=== PATIENT | female | born 1995 | race American Indian/Alaskan Native ===

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

== ENCOUNTER 2017-08-09 08:55 | Emergency (ER) | payer MEDICAID ==
--- NOTE | 2017-08-09 10:08 | Emergency Department Report ---
ED Female HPI - General Chief complaint: Urogenital-Female Stated complaint: ABDOMINAL PAIN Time Seen by Provider: 08/09/17 09:44 Source: patient Mode of arrival: Ambulatory Limitations: No Limitations - History of Present Illness Initial comments: 22-year-old female past medical history asthma presents with complaint of intermittent crampy pain for 2 weeks suprapubic with associated yellowish whitish vaginal discharge. Patient denies fevers chills nausea or vomiting. States pain is crampy. States she has a history of Chlamydia gonorrhea and trichomonas. Full lucid awake alert and oriented 3. MD Complaint: vaginal discharge Onset/Timin -: week(s) - Related Data Previous Rx's Medication Instructions Recorded Last Taken Type Ibuprofen [Motrin] 600 mg PO Q8H PRN #15 tablet 08/04/16 Unknown Rx methOCARBAMOL [Robaxin TAB] 500 mg PO Q6H PRN #15 tablet 08/04/16 Unknown Rx Fluconazole [Diflucan] 150 mg PO ONCE #1 tablet 08/09/17 Unknown Rx Sulfamethoxazole/Trimethoprim 1 each PO BID #6 tablet 08/09/17 Unknown Rx [Bactrim DS TAB] Allergies Allergy/AdvReac Type Severity Reaction Status Date / Time egg Allergy Swelling Verified 08/09/17 09:09 ED Review of Systems ROS: Stated complaint: ABDOMINAL PAIN Other details as noted in HPI ED Past Medical Hx - Past Medical History Hx Asthma: Yes - Surgical History Past Surgical History?: No - Social History Smoking Status: Never Smoker Substance Use Type: None - Medications Home Medications: Home Medications Medication Instructions Recorded Confirmed Last Taken Type Ibuprofen [Motrin] 600 mg PO Q8H PRN #15 tablet 08/04/16 Unknown Rx methOCARBAMOL [Robaxin TAB] 500 mg PO Q6H PRN #15 tablet 08/04/16 Unknown Rx Fluconazole [Diflucan] 150 mg PO ONCE #1 tablet 08/09/17 Unknown Rx Sulfamethoxazole/Trimethoprim 1 each PO BID #6 tablet 08/09/17 Unknown Rx [Bactrim DS TAB] ED Physical Exam - General Limitations: No Limitations General appearance: alert, in no apparent distress - Head Head exam: Present: atraumatic, normocephalic - Eye Eye exam: Present: normal appearance - ENT ENT exam: Present: mucous membranes moist - Neck Neck exam: Present: normal inspection - Respiratory Respiratory exam: Present: normal lung sounds bilaterally. Absent: respiratory distress - Cardiovascular Cardiovascular Exam: Present: regular rate, normal rhythm. Absent: systolic murmur, diastolic murmur, rubs, gallop - GI/Abdominal GI/Abdominal exam: Present: soft, normal bowel sounds - Extremities Exam Extremities exam: Present: normal inspection - Back Exam Back exam: Present: normal inspection - Neurological Exam Neurological exam: Present: alert, oriented X3 - Psychiatric Psychiatric exam: Present: normal affect, normal mood - Skin Skin exam: Present: warm, dry, intact, normal color. Absent: rash ED Course Vital Signs 08/09/17 09:09 Temperature 98.3 F Pulse Rate 55 L Respiratory 16 Rate Blood Pressure 103/62 O2 Sat by Pulse 100 Oximetry ED Medical Decision Making - Medical Decision Making A/P: yeast infection, vaginal irritation 1-3 day course of Bactrim for UTI 2- fluconazole 1 dose for yeast, what prep unremarkable otherwise 3- Treatment for cervicitis 4- follow-up with [facility] and primary care Critical care attestation.: If time is entered above; I have spent that time in minutes in the direct care of this critically ill patient, excluding procedure time. ED Disposition Clinical Impression: Vaginal discharge, Yeast infection Urinary tract infection Qualifiers: Urinary tract infection type: acute cystitis Hematuria presence: without hematuria Qualified Code(s): N30.00 - Acute cystitis without hematuria Disposition: - TO HOME OR SELFCARE Is pt being admited?: No Does the pt Need Aspirin: No Condition: Stable Instructions: Urinary Tract Infection in Women (ED), Vulvovaginal Candidiasis ( ED) Prescriptions: Fluconazole [Diflucan] 150 mg PO ONCE #1 tablet Sulfamethoxazole/Trimethoprim [Bactrim DS TAB] 1 each PO BID #6 tablet Referrals: [facility] [Provider Group] - 3-5 Days [facility] [Provider Group] - 3-5 Days Forms: Work/School Release Form(ED) Time of Disposition: 10:53
[2017-08-09 10:25] LABS: Bacteria,Urine 1+ /HPF (Negative); Bilirubin,Urine NEG (Negative); Blood,Urine NEG (Negative); Color,Urine Yellow (Yellow); HCG Qualitative,Urine Negative (Negative); Mucus,Urine 3+ /HPF
[2017-08-09] MEDS ORDERED: ROCEPHIN IM ONE (10:39)
[2017-08-09] MEDS ORDERED: ZITHROMAX PO ONE (10:40)
[2017-08-09 11:00] VITALS: BP 100/60
== END 2017-08-09 10:59 | disposition home or self-care (01) ==
LOC: ED 08:55
DX: N39.0 Urinary tract infection, site not specified (principal); B37.9 Candidiasis, unspecified; J45.909 Unspecified asthma, uncomplicated; Z91.012 Allergy to eggs
CPT/HCPCS: 81001; 81025; 87210; 87591; 96372; 99283; J0696